=== PATIENT | female | born 1995 | race Two or more races ===

== ENCOUNTER 2022-12-12 20:42 | Emergency (ER) | payer MEDICAID, OTHER ==
[~2022-12-12] VITALS: Ht 165.1 cm; Wt 68.0 kg
[2022-12-13] MEDS ORDERED: AMOX875T4 PO (02:38)
[2022-12-13] MEDS ORDERED: ACET500T58 PO (02:38)
[2022-12-13] MEDS ORDERED: cefTRIAXone SOD 1,000 MG VL IM ONE (02:45)
[2022-12-13 03:20] VITALS: BP 122/63
== END 2022-12-13 03:42 | disposition home or self-care (01) ==
LOC: EDBD 20:42 → ER 20:48
DX: O9A.212 Injury, poisoning and certain other consequences of external causes complicating pregnancy, second trimester (principal); S61.512A Laceration without foreign body of left wrist, initial encounter; Z3A.16 16 weeks gestation of pregnancy; W54.0XXA Bitten by dog, initial encounter; Y93.89 Activity, other specified; Y92.89 Other specified places as the place of occurrence of the external cause; Y99.8 Other external cause status
CPT/HCPCS: 12002; 96372; 99283; J0696

== ENCOUNTER 2022-12-20 07:51 | Emergency (ER) | payer MEDICAID ==
[~2022-12-20] VITALS: Ht 157.5 cm; Wt 60.0 kg
[~2022-12-20 07:51] MED LIST: ACET500T58 PO; AMOX875T4 PO
[2022-12-20 08:13] VITALS: BP 102/60
[2022-12-20] MEDS ORDERED: RABIES VACCINE (PCEC)/PF 2.5 UNITS IM ONE (08:45)
== END 2022-12-20 09:58 | disposition home or self-care (01) ==
LOC: ER 07:51
DX: O9A.212 Injury, poisoning and certain other consequences of external causes complicating pregnancy, second trimester (principal); S61.512D Laceration without foreign body of left wrist, subsequent encounter; Z3A.16 16 weeks gestation of pregnancy; W54.0XXD Bitten by dog, subsequent encounter
CPT/HCPCS: 90471; 90675

== ENCOUNTER 2022-12-22 15:52 | Emergency (ER) | payer MEDICAID ==
[~2022-12-22] VITALS: Ht 157.5 cm; Wt 60.0 kg
[2022-12-22 18:35] VITALS: BP 107/63
== END 2022-12-22 19:08 | disposition home or self-care (01) ==
LOC: ER 15:52
DX: O9A.212 Injury, poisoning and certain other consequences of external causes complicating pregnancy, second trimester (principal); S61.512D Laceration without foreign body of left wrist, subsequent encounter; Z3A.00 Weeks of gestation of pregnancy not specified; W54.0XXD Bitten by dog, subsequent encounter

== ENCOUNTER 2022-12-23 06:35 | Emergency (ER) | payer MEDICAID ==
[~2022-12-23] VITALS: Ht 157.5 cm; Wt 57.7 kg
[2022-12-23 06:47] VITALS: BP 98/67
[2022-12-23] MEDS ORDERED: RABIES VACCINE (PCEC)/PF 2.5 UNITS IM ONE (08:15)
== END 2022-12-23 08:48 | disposition home or self-care (01) ==
LOC: ER 06:35
DX: Z23 Encounter for immunization (principal); Z79.1 Long term (current) use of non-steroidal anti-inflammatories (NSAID); Z79.899 Other long term (current) drug therapy
CPT/HCPCS: 90471; 90675